=== PATIENT | female | born 1990 | race Two or more races ===

== ENCOUNTER 2017-06-28 12:10 | Inpatient (IN) | payer OTHER ==
[~2017-06-28] VITALS: Ht 154.9 cm; Wt 78.1 kg
[~2017-06-28 12:10] MED LIST: HYDR-3240 PO
[2017-06-28 12:45] VITALS: BP 122/58
[2017-06-28 13:14] LABS: AMNI OBC PASS; AMNISURE NEGATIVE (NEGATIVE)
[2017-06-28] MEDS: LACTATED RINGERS 1,000 ML IV SCH ×3 (15:45→23:05)
[2017-06-28] MEDS ORDERED: OXYTOCIN 30U/ 0.9% NaCL 500ML 500 ML IV PRN ×2 (15:50→20:27)
[2017-06-28] MEDS ORDERED: FENTANYL PF 100 MCG/2ML ONE (15:50)
[2017-06-28] MEDS ORDERED: NEWBORN KIT ONE (15:50)
[2017-06-28] MEDS ORDERED: D5%-LACTATED RINGERS 1,000 ML IV SCH (15:50)
[2017-06-28] MEDS ORDERED: OXYTOCIN 30U/ 0.9% NaCL 500ML 500 ML IV ONE (15:50)
[2017-06-28] MEDS ORDERED: ONDANSETRON 2MG/ML, 2ML IVPush PRN (16:00)
[2017-06-28] MEDS ORDERED: TERBUTALINE 1 MG/ML, 1ML SQ PRN (16:00)
[2017-06-28] MEDS ORDERED: FENTANYL PF 100 MCG/2ML IVPush PRN (16:00)
[2017-06-28] MEDS ORDERED: FENTANYL PF 100 MCG/2ML IV PRN (16:00)
[2017-06-28 16:12] LABS: HEMATOCRIT 38.1 % (34.6-47.8); HEMOGLOBIN 12.8 g/dL (11.7-16.4); WHITE BLOOD COUNT 18.1 x10^3/uL (3.4-10)
[2017-06-28 17:00] LABS: DIFF TOTAL CELLS COUNTED 100 CELL DIFF
[2017-06-28 17:02] LABS: VERIFY COUNTS? YES
[2017-06-28] MEDS ORDERED: OXYTOCIN 30U/ 0.9% NaCL 500ML 500 ML ONE (20:30)
[2017-06-29] MEDS ORDERED: IBUPROFEN 600 MG TABLET ONE (06:01)
[2017-06-29] MEDS ORDERED: OXYTOCIN 30U/ 0.9% NaCL 500ML 500 ML ONE (06:01)
[2017-06-29] MEDS ORDERED: OXYTOCIN 30U/ 0.9% NaCL 500ML 500 ML IV SCH ×4 (06:04→11:00)
[2017-06-29] MEDS ORDERED: ACETAMINOPHEN 325 MG TABLET PO PRN ×8 (06:30→11:00)
[2017-06-29] MEDS ORDERED: MISOPROSTOL 200 MCG TABLET PR PRN ×4 (06:30→11:00)
[2017-06-29] MEDS ORDERED: DOCUSATE 100 MG CAPSULE PO PRN ×3 (06:30)
[2017-06-29] MEDS ORDERED: HYDROcodone/APAP 5/325 TABLET PO PRN ×8 (06:30→11:30)
[2017-06-29] MEDS ORDERED: IBUPROFEN 600 MG TABLET PO PRN ×3 (06:30)
[2017-06-29 09:00] VITALS: BP 92/58
[2017-06-29] MEDS ORDERED: PRENATAL VIT/IRON/FA 1 EACH TABLET PO SCH ×2 (09:00)
[2017-06-29] MEDS ORDERED: METHYLERGONOVINE 0.2 MG/ML IM PRN (11:00)
[2017-06-29] MEDS ORDERED: OXYcodone/APAP 5/325MG TABLET PO PRN ×2 (11:00→11:30)
[2017-06-29] MEDS ORDERED: OXYTOCIN 30U/ 0.9% NaCL 500ML 500 ML IV PRN ×2 (11:00)
[2017-06-29] MEDS ORDERED: ALUMINUM/MAG/SIMETHICONE 30 ML UDC PO PRN (11:30)
[2017-06-29] MEDS ORDERED: METOCLOPRAMIDE 5 MG/ML, 2ML IV PRN (11:30)
[2017-06-29] MEDS ORDERED: FENTANYL PF 100 MCG/2ML IV PRN (11:30)
[2017-06-29] MEDS ORDERED: CALCIUM CARBONATE 500 MG TABLET PO PRN (11:30)
[2017-06-29] MEDS ORDERED: ONDANSETRON 2MG/ML, 2ML IV PRN (11:30)
[2017-06-29] MEDS ORDERED: MISOPROSTOL 25 MCG TABLET VG PRN (11:30)
[2017-06-29] MEDS ORDERED: SODIUM CITRATE/CITRIC ACID 30 ML UDC PO PRN (11:30)
[2017-06-29] MEDS: IBUPROFEN 600 MG TABLET PO PRN ×2 (11:43→18:02)
[2017-06-29] MEDS: PRENATAL VIT/IRON/FA 1 EACH TABLET PO SCH (11:43)
[2017-06-29 14:00] VITALS: BP 102/62
[2017-06-29 19:45] VITALS: BP 108/61
[2017-06-29 20:43] LABS: HEMATOCRIT 33.1 % (34.6-47.8); WHITE BLOOD COUNT 18.4 x10^3/uL (3.4-10)
[2017-06-29 23:45] VITALS: BP 104/62
[2017-06-30 07:45] VITALS: BP 101/63
[2017-06-30] MEDS: IBUPROFEN 600 MG TABLET PO PRN (08:17)
[2017-06-30] MEDS: PRENATAL VIT/IRON/FA 1 EACH TABLET PO SCH (08:17)
[2017-06-30 16:20] VITALS: BP 110/68
[2017-06-30 19:45] VITALS: BP 120/69
[2017-07-01] MEDS: IBUPROFEN 600 MG TABLET PO PRN (03:51)
[2017-07-01 08:05] VITALS: BP 108/67
[2017-07-01] MEDS: PRENATAL VIT/IRON/FA 1 EACH TABLET PO SCH ×2 (09:00→09:28)
[2017-07-01] MEDS ORDERED: IBUP-1222 PO (10:38)
[2017-07-01] MEDS ORDERED: HYDR-3240 PO (10:39)
== END 2017-07-01 18:45 | disposition home or self-care (01) | DRG 775 ==
LOC: LDOP 12:10 → LDIP 16:01 → 2NW 06-29 08:00
PROVIDERS: ADMIT Obstetrics & Gynecology; ATTEND Obstetrics & Gynecology
PROC: 10E0XZZ Delivery of Products of Conception, External Approach (ICD-10-PCS; principal; 2017-06-29)
PROC: 0W8NXZZ Division of Female Perineum, External Approach (ICD-10-PCS; 2017-06-29)
PROC: 10907ZC Drainage of Amniotic Fluid, Therapeutic from Products of Conception, Via Natural or Artificial Opening (ICD-10-PCS; 2017-06-29)
DX: O77.0 Labor and delivery complicated by meconium in amniotic fluid (principal); Z37.0 Single live birth; Z3A.40 40 weeks gestation of pregnancy
CPT/HCPCS: 36415; 81001; 84112; 85025; 86850; 86900; 87086; 89060; J3010; J2590; J7120; J7121; Q0114